=== PATIENT | male | born 1970 | race Hispanic/Latino ===

== ENCOUNTER 2019-03-16 22:11 | Emergency (ER) | payer OTHER ==
[~2019-03-16] VITALS: Ht 188 cm; Wt 81.6 kg
[~2019-03-16 22:11] MED LIST: ACET-685 PO; ASPI-484 PO; CALC200T3 PO; CEPH500C PO; ESOM20CA PO; ESOM40CA PO; LISI10TA2 PO; METO-237 PO; METO50TA6 PO
[2019-03-16 22:29] VITALS: BP 160/113
[2019-03-16] MEDS ORDERED: DECADRON PO STA (23:24)
[2019-03-16] MEDS ORDERED: AMOXIL PO STA (23:24)
[2019-03-16] MEDS ORDERED: DECADRON ONE (23:36)
--- NOTE | 2019-03-16 23:36 | ER.PDOC ---
General Chief Complaint: Toothache Stated Complaint: TOOTHACHE Time seen by MD: 23:00 Source: patient Exam Limitations: no limitations History of Present Illness Initial Comments Patient comes to the ED stating that he has been having left lower molar dental pain for several days, worse today with hot or cold liquids. No fever, cough, dysphagia, odynophagia, drooling, or dysphonia. No fever, cough, dyspnea. No neck pain. Denies other somatic complaints and has not seen his primary in quite some time. Allergies: Coded Allergies: No Known Allergies (Unverified , 07/02/17) Home Meds Active Scripts Acetaminophen With Codeine (TYLENOL WITH CODEINE #3 TABLET) 1 Each Tablet, 1 EACH PO Q4HR for Pain for 10 Days, #20 TAB Prov:DIANA RUFF MD 01/23/18 Cephalexin (CEPHALEXIN) 500 Mg Capsule, 500 MG PO TID for 5 Days, #15 CAP Prov:DIANA RUFF MD 01/23/18 Reported Medications Esomeprazole Magnesium (NEXIUM) 20 Mg Capsule.dr, 1 CAP PO DAILY, #30 CAP 2 Refills 07/02/17 Aspirin (ASPIR 81) 81 Mg Tablet.dr, 1 TAB PO DAILY, #30 TAB 5 Refills 05/21/14 Past Medical History Medical History: hypertension Surgical History: no surgical history, other Family History Significant Family History: no pertinent family hx Social History Smoking: less than 1 pack/day Alcohol Use: occassionally Drug Use: none Reviewed Nursing Reviewed: Vital Signs, Abn. Noted, Nursing Assessment All Other Systems: Reviewed and Negative Physical Exam General Appearance: alert Comments General: cooperative HEENT: normocephalic, atraumatic, EOMI, sclerae anicteric without injection, oropharynx - pink and moist, left lower molar poor dentition, tender to percussion, no gingival edema, purulent discharge, no uvular edema, no submandibular lymphadenopathy, none over ant cervical chain Neck: supple, no nuchal rigidity appreciated CV: RRR, S1, S2, no rubs, clicks, or murmurs Lungs: CTA bilat, no r�les, wheezes, or rhonchi Abdomen: soft, ND, NT, no rebound/guarding, normoactive bowel sounds Extremities: no clubbing, cyanosis, or edema Skin: warm, dry, and intact Neuro: no focal deficits noted, CN II-XII grossly intact to inspection, moves all extremities well Psych: normal affect Results/Orders Results/Orders Orders - DEAN ARREOLA MD Dexamethasone (Decadron) (03/16/19 23:24) Amoxicillin (Amoxil) (03/16/19 23:24) Vital Signs Date Time Temp Pulse Resp B/P (MAP) Pulse Ox O2 Delivery O2 Flow Rate FiO2 03/16/19 22:29 98.0 70 16 70 Room Air 03/16/19 22:29 98.0 70 16 03/16/19 22:29 98.0 70 16 160/113 (129) 70 Room Air Progress Progress Patient findings consistent with dental caries, abscess, gingival infection, or other. Given single dose dexamethasone and amoxicillin. Encouraged to take his daily lisinopril which he has stopped for some time. Current pressure only 165/90, but on zero anti-hypertensives at this time. Discharged out on the course of amoxicillin and given rx for lisinopril. Departure Time of Disposition: 23:35 Disposition: 01 HOME, SELF-CARE Impression: Primary Impression: Dental caries Condition: Improved Patient Instructions: Dental Caries, Hypertension Referrals: PCP,UNKNOWN (PCP) PRIMARY CARE PROVIDER Additional Instructions: As we discussed, there were no findings which were worrisome or concerning. You can finish the course of the antibiotics to help with the dental infection. In addition, you should take your blood pressure medicine daily to control your pressure. Thank you again for your visit and for trusting us with your care. Dr Dean Arreola ([place] - [place]'- [place]) Duration or Time Spent with Pa: 10 DEAN ARREOLA MD Mar 16, 2019 23:36
[2019-03-16] MEDS ORDERED: AMOXIL PO ONE (23:37)
[2019-03-16 23:45] VITALS: BP 162/111
[2019-03-16 23:48] VITALS: BP 162/111
== END 2019-03-16 23:46 | disposition home or self-care (01) ==
LOC: ER 22:11
DX: K02.9 Dental caries, unspecified (principal); F17.210 Nicotine dependence, cigarettes, uncomplicated; I10 Essential (primary) hypertension; Z79.82 Long term (current) use of aspirin; Z79.899 Other long term (current) drug therapy
CPT/HCPCS: 99283; J8540

== ENCOUNTER 2019-04-07 15:31 | Emergency (ER) | payer OTHER ==
[~2019-04-07] VITALS: Ht 188 cm; Wt 81.6 kg
[2019-04-07 15:33] VITALS: BP 122/87
--- NOTE | 2019-04-07 15:41 | ER.PDOC ---
General Chief Complaint: Requesting Medical Care Stated Complaint: CHEST PAINS Time seen by MD: 15:39 Source: patient Exam Limitations: no limitations History of Present Illness Initial Comments Pt c/o sharp pains in chest, gradual onset in L mid chest, sharp, constant over 3 days. Feels some slight SOB, no nausea, diaphoresis, radiation of pain. No leg/foot swelling or discomfort Timing/Duration: other (2-3 days) Radiation: no radiation Activities at Onset: none Prior CP/Workup: No Prior Chest Pain Nitro Today/Relief: No Nitro Taken Today Aspirin Today: No Aspirin Today Prior symptoms/Treatment: No Similar symptoms previous, No Recenly Seen Allergies: Coded Allergies: No Known Allergies (Unverified , 07/02/17) Home Meds Active Scripts Acetaminophen With Codeine (TYLENOL WITH CODEINE #3 TABLET) 1 Each Tablet, 1 EACH PO Q4HR for Pain for 10 Days, #20 TAB Prov:DIANA RUFF MD 01/23/18 Cephalexin (CEPHALEXIN) 500 Mg Capsule, 500 MG PO TID for 5 Days, #15 CAP Prov:DIANA RUFF MD 01/23/18 Reported Medications Esomeprazole Magnesium (NEXIUM) 20 Mg Capsule.dr, 1 CAP PO DAILY, #30 CAP 2 Refills 07/02/17 Aspirin (ASPIR 81) 81 Mg Tablet.dr, 1 TAB PO DAILY, #30 TAB 5 Refills 05/21/14 Past Medical History Medical History: hypertension Surgical History: no surgical history, other Social History Smoking: cigarettes, less than 1 pack/day Drug Use: none Constitutional: no symptoms reported EENTM: no symptoms reported Respiratory: see HPI Cardiovascular: see HPI, chest pain; denies edema, denies irregular heart rate, denies lightheadedness, denies syncope Gastrointestinal: no symptoms reported Genitourinary: no symptoms reported Skin: no symptoms reported; denies lesions, denies rash Endocrine: no symptoms reported All Other Systems: Reviewed and Negative Physical Exam General Appearance: No Apparent Distress, WD/WN HEENT: PERRL/EOMI, Normal ENT Inspection, TMs Normal, Pharynx Normal Neck: Non-Tender, Full Range of Motion, Supple, Normal Inspection Comments has tender point L costochondral junction between 3rd/4th rib. Reproduces pain of complaint. Progress Progress Pt tsted positive for h pylori, so i will give Rx for that, but also has symptoms c/w costochondritis. Will start on NSAID as well. PROCEDURE:CHEST 2 VIEWS COMPARISON:[facility], [place], XRAY CHEST 2 VWS, 07/02/2017, 10:40 AM. [facility], [place], XRAY CHEST SINGLE VW, 06/18/2017, 09:43 PM. [facility], [place], XRAY CHEST SINGLE VW, 07/07/2016, 08:00 PM. INDICATIONS:chest pain FINDINGS: LUNGS/PLEURA:No significant pulmonary parenchymal abnormalities. No effusions. VASCULATURE:Normal. Unremarkable pulmonary vasculature. CARDIAC:Normal. No cardiac silhouette abnormality or cardiomegaly. MEDIASTINUM:Normal. No visible mass or adenopathy. BONES:Normal. No fracture or visible bony lesion. OTHER:Negative. CONCLUSION:No acute abnormality. Dictated by: Lis Correa M.D. on 04/07/2019 at 04:03 PM /XRAY/CT/US EKG: NSR EKG Comments: no ischemic changes noted XRAY: chest XRAY Comments: nad Departure Time of Disposition: 17:30 Disposition: 01 HOME, SELF-CARE Impression: Primary Impression: Costochondritis, acute Additional Impression: H. pylori infection Condition: Stable Referrals: PCP,UNKNOWN (PCP) PRIMARY CARE PROVIDER Additional Instructions: See a PMD in 2-3 days Duration or Time Spent with Pa: 30 Problem Qualifiers LAW MARTINEZ DO Apr 07, 2019 15:41
--- NOTE | 2019-04-07 15:51 | PCM.EKG ---
[facility] Test Date: 2019-04-07 Test Time: 15:40:00 Pat Name: DIANA ORTIZ Department: Room: Gender: M Housekeeper Home: [facility] : 1970 Requested By: LAW MARTINEZ Order Number: [id number] Reading MD: Law Martinez Measurements Intervals [place] Rate: 71 P: 71 GA: 160 QRS: 66 QRSD: 78 T: 80 QT: 382 QTc: 415 Interpretive Statements Normal sinus rhythm Normal ECG Compared to ECG 01/20/2018 13:45:29 Sinus bradycardia no longer present Sinus arrhythmia no longer present Atrial premature complex(es) no longer present Electronically Signed On 04-07-2019 23:19:29 CDT by Law Martinez Please click the below link to view image of tracing.
[2019-04-07 15:55] VITALS: BP 122/87
[2019-04-07] MEDS ORDERED: TORADOL IV ONE (16:00)
--- NOTE | 2019-04-07 16:05 | DIREP ---
PROCEDURE:CHEST 2 VIEWS COMPARISON:[facility], [place], XRAY CHEST 2 VWS, 07/02/2017, 10:40 AM. [facility], [place], XRAY CHEST SINGLE VW, 06/18/2017, 09:43 PM. [facility], [place], XRAY CHEST SINGLE VW, 07/07/2016, 08:00 PM. INDICATIONS:chest pain FINDINGS: LUNGS/PLEURA:No significant pulmonary parenchymal abnormalities. No effusions. VASCULATURE:Normal. Unremarkable pulmonary vasculature. CARDIAC:Normal. No cardiac silhouette abnormality or cardiomegaly. MEDIASTINUM:Normal. No visible mass or adenopathy. BONES:Normal. No fracture or visible bony lesion. OTHER:Negative. CONCLUSION:No acute abnormality. Dictated by: Lis Correa M.D. on 04/07/2019 at 04:03 PM
[2019-04-07] MEDS ORDERED: TORADOL ONE (16:18)
[2019-04-07 16:24] VITALS: BP 117/81
[2019-04-07 16:24] LABS: BASOPHIL % 0.2 % (0.0-0.2); EOSINOPHIL # 0.1 10^3/uL (0.0-0.2); EOSINOPHIL % 0.7 % (0.0-5.0); HEMOGLOBIN 16.8 g/dL (13.9-16.3); LYMPHOCYTES # 2.3 10^3/uL (1.0-4.8); MEAN CELL HGB 31.3 pg (26-34); MEAN CELL HGB CONCENTRATION 35.5 g/dL (33-37); MEAN CORP VOLUME 88.2 fL (78-100); MEAN PLATELET VOLUME 9.9 fL (7.8-11.0); MONOCYTES # 0.9 10^3/uL (0.3-0.8); MONOCYTES % 7.7 % (5.0-12.0); NEUTROPHIL # 8.8 10^3/uL (1.8-7.7); NEUTROPHILS % 72.2 % (41.0-85.0); RED CELL DISTRIBUTION WIDTH 13.3 % (11.5-14.5); WHITE BLOOD CELL 12.2 10^3/uL (4.5-11.0)
[2019-04-07 16:47] LABS: ALANINE AMINOTRANSFERASE(ML) 23 U/L (12-78); ALKALINE PHOSPHATASE 114 U/L (50-136); ASPARTATE AMINO TRANSFERASE 22 U/L (0-35); CALCIUM 8.9 mg/dL (8.4-10.5); CARBON DIOXIDE 23.5 mmol/L (20.0-32); GLUCOSE 115 mg/dL (70-110)
[2019-04-07 17:00] VITALS: BP 131/82
[2019-04-07 17:24] VITALS: BP 122/79
[2019-04-07 18:16] VITALS: BP 122/79
== END 2019-04-07 17:40 | disposition home or self-care (01) ==
LOC: ER 15:31
DX: M94.0 Chondrocostal junction syndrome [Tietze] (principal); A04.8 Other specified bacterial intestinal infections; I10 Essential (primary) hypertension; F17.210 Nicotine dependence, cigarettes, uncomplicated; Z79.82 Long term (current) use of aspirin; Z79.2 Long term (current) use of antibiotics; Z79.891 Long term (current) use of opiate analgesic; Z79.899 Other long term (current) drug therapy
CPT/HCPCS: 36415; 71046; 80053; 82550; 83880; 84484; 85025; 85610; 85730; 86677; 93005; 96374; 99285; J1885